=== PATIENT | male | born 1945 | race Hispanic/Latino ===

== ENCOUNTER 2019-06-02 10:13 | Day surgery (SDC) | payer OTHER, MEDICARE ==
[2019-05-31 11:55] LABS: APPEARANCE,URINE Clear (CLEAR); BILIRUBIN,URINE Negative (NEGATIVE); COLOR,URINE Yellow (YELLOW); GLUCOSE, URINE (UA) TRACE mg/dL (NEGATIVE); KETONES,URINE Negative (NEGATIVE); LEUKOCYTE ESTERASE ,URINE Negative (NEGATIVE); NITRATE,URINE Negative (NEGATIVE); OCCULT BLOOD,URINE Small (NEGATIVE); PH,URINE 5.5 (5.0-8.0); PROTEIN,URINE 300 mg/dL (NEGATIVE)
[2019-05-31 12:00] LABS: BACTERIA,URINE Rare /HPF (None Seen); RBC,URINE 0-1 /HPF (0-1); SQUAMOUS EPITHELIAL CELL,UR Rare /HPF (0-2); WBC,URINE 0-1 /HPF (0-1)
[2019-05-31 12:05] LABS: INR 1.01 (0.85-1.15); PARTIAL THROMBOPLASTIN TIME 26.6 SEC (26.3-35.5); PROTHROMBIN TIME 10.6 SEC (9.6-11.6)
[2019-05-31 12:09] LABS: BASOPHILS % (AUTO) 0.5 % (0.0-5.0); EOSINOPHILS % (AUTO) 2.9 % (0.0-8.0); HEMATOCRIT 33.9 % (42-54); LYMPHOCYTES % (AUTO) 14.9 % (21.0-51.0); MEAN CORPUSCULAR HEMOGLOBIN 30.6 pg (27.0-33.0); MEAN CORPUSCULAR HGB CONC 33.6 g/dL (32.0-36.0); MEAN CORPUSCULAR VOLUME 91.1 fL (79-99); MONOCYTES % (AUTO) 5.2 % (3.0-13.0); NEUTROPHILS % (AUTO) 76.2 % (40.0-77.0); PLATELET COUNT (AUTO) 181 K/uL (130-400); RED BLOOD CELL COUNT(AUTO) 3.72 MIL/uL (4.50-6.20); RED CELL DISTRIBUTION WIDTH 12.8 % (11.0-15.5); WHITE BLOOD COUNT (AUTO) 7.3 K/uL (4.8-10.8)
[2019-05-31 12:18] LABS: POTASSIUM 4.8 mmol/L (3.5-5.1)
[2019-05-31 12:33] VITALS: BP 168/72
--- NOTE | 2019-06-01 12:25 | NUR ---
ALL ABNORMAL LABS REPORTED TO [facility] [place] ORDER IS TO REPEAT GLUCOSE (250)TOMORROW. KATHY CLEMENTS WILL BE OUT OF TOWN TOMORROW.
[~2019-06-02] VITALS: Ht 172.7 cm; Wt 82.6 kg
[2019-06-02] VITALS (9 sets, daily range): BP systolic 141–191; BP diastolic 68–97
[~2019-06-02 10:13] MED LIST: ASPI-555 PO; CHOL500062 PO; INSU100V12 SQ; LISI-617 PO; METF-446 PO; METO-408 PO; NITRO SL; SIMV-46 PO; SITA50TA PO
--- NOTE | 2019-06-02 10:45 | NUR ---
ASSESSMENT PT HERE FOR PROCEDURE. DENIES ANY PAIN, SOB. PROVIDER AT BEDSIDE.
[2019-06-02] MEDS ORDERED: SODIUM CHLORIDE 0.9% 1000ML 1,000 ML IV ONE (13:10)
[2019-06-02] MEDS ORDERED: SODIUM BICARB 50MEQ 50ML VIAL ONE (15:12)
[2019-06-02] MEDS ORDERED: NITROGLYCERIN 2 MG/VIAL VIAL IV ONE (15:12)
[2019-06-02] MEDS ORDERED: HEPARIN SODIUM 1000UNIT/ML 10ML VIAL ONE (15:12)
[2019-06-02] MEDS ORDERED: IOHEXOL-350 50ML VIAL IV ONE (15:13)
[2019-06-02] MEDS ORDERED: LIDOCAINE HCL 2% 20ML ONE (15:13)
[2019-06-02] MEDS ORDERED: NICARDIPINE HCL 25 MG/10 ML ML IV ONE (15:18)
[2019-06-02] MEDS ORDERED: IOHEXOL 350 MG/ML 100ML INFUS..BTL IV ONE (15:46)
[2019-06-02] MEDS ORDERED: MIDAZOLAM HCL 1 MG/ML 2ML VIAL ONE (16:13)
[2019-06-02] MEDS ORDERED: FENTANYL CITRATE PF 50 MCG/1 ML 2ML VIAL ONE (16:13)
[2019-06-02] MEDS ORDERED: TICAGRELOR 90 MG TABLET ONE (17:03)
[2019-06-02] MEDS ORDERED: ASPIRIN 325MG EC TAB 325 MG TABLET.DR PO ONE (17:03)
--- NOTE | 2019-06-02 17:35 | NUR ---
RECEIVED FROM [facility] SET UP OPERATOR VIA BED ACCOMPANIED BY Elma GALARZA RN. PT. [id number], RESP.'S EVEN AND UNLABORED. DENIES ANY C/O SOB, DENIES ANY CURRENT PAIN. INSTRUCTED TO REFRAIN FROM STRENUOUS ACTIVITY WITH RIGHT ARM, VERBALIZED UNDERSTANDING. PLEASANT, SMILES, TALKATIVE. CALL LIGHT WITHIN REACH, VERBALIZED ABILITY TO USE. BED LOW, SIDE RAILS UP X3. FAMILY MEMBERS AT BEDSIDE.
[2019-06-02] MEDS ORDERED: ATROPINE SULFATE 0.1 MG/ML 10 ML SYG IVP ONE (18:00)
== END 2019-06-02 23:00 | disposition home or self-care (01) ==
LOC: DAH 10:13
PROVIDERS: ATTEND Internal Medicine Cardiovascular Disease
DX: I25.10 Atherosclerotic heart disease of native coronary artery without angina pectoris (principal); E11.9 Type 2 diabetes mellitus without complications; I10 Essential (primary) hypertension; E78.5 Hyperlipidemia, unspecified; Z79.82 Long term (current) use of aspirin; Z79.899 Other long term (current) drug therapy; Z79.4 Long term (current) use of insulin; Z86.73 Personal history of transient ischemic attack (TIA), and cerebral infarction without residual deficits; Z87.891 Personal history of nicotine dependence; Z79.01 Long term (current) use of anticoagulants; Z79.84 Long term (current) use of oral hypoglycemic drugs
CPT/HCPCS: 36415 ×2; 71045; 80048; 81001; 82948 ×2; 85025; 85347; 85610; 85730; 93005; 93458; A4215; A4216; A4221; A4222; A4223 ×3; A4606; A4663; C1769 ×2; C1874; C1887; C1894; C9600; J1644 ×2; J2250; J3010; J3490 ×4; J7030; Q9965 ×2; Q9967 ×2; 99156; 99157; J0461